=== PATIENT | male | born 1960 | race Caucasian/White ===

== ENCOUNTER 2019-06-27 10:33 | Emergency (ER) | payer SELFPAY ==
[2019-06-27] MEDS ORDERED: HYDROmorphone 0.5 MG/0.5 ML Syringe IVPUSH ONE (11:15)
[2019-06-27] MEDS ORDERED: HYDROmorphone 0.5 MG/0.5 ML Syringe ONE (11:16)
--- NOTE | 2019-06-27 11:52 | CR ---
Lumbar spine: AP and lateral views of the lumbar spine were obtained. Comparison: No previous study. Slight disc space narrowing is noted within the lower thoracic spine. Posterior disc space narrowing is noted at L4-L5. Other disc spaces are maintained. Scattered endplate osteophytes are seen. Pedicles are intact. Transverse and spinous processes are intact. Sacroiliac joints appear within normal limits. Impression: 1. Mild degenerative change as noted above. Diagnostic code #2 This report was dictated in [place] Standard Time
[2019-06-27] MEDS ORDERED: Orphenadrine 100 MG Tab.ER PO ONE (11:57)
--- NOTE | 2019-06-27 12:03 | EDM.PDOC ---
ED HPI GENERAL MEDICAL PROBLEM - General Chief Complaint: Back Pain or Injury Stated Complaint: FALL - 10 FT Time Seen by Provider: 06/27/19 11:08 Source of Information: Reports: Patient, RN Notes Reviewed History Limitations: Reports: No Limitations - History of Present Illness INITIAL COMMENTS - FREE TEXT/NARRATIVE: Patient is a 59-year-old male who presents to the ED for the evaluation of a fall. He notes that he was working on a ladder, taking a ceiling fixture down, when the ceiling fixture got away from him, and took him to the ground. He notes that he was about 5 feet up on the ladder, when he fell onto his butt and then onto his back. He states he did not hit his head or have any sort of loss of consciousness or blacking out. Patient is able to move lower extremities in all range of motion, however it is slow and painful to do so. He denies any numbness or tingling to the distal extremities. He does not have any pain into his neck, or into the back of his chest. The present in the room states that he is acting normal for himself, still has a slight sense of humor. When asked to point to what hurts, he points to the top of the right iliac crest, and into his back. He notes that he was able to get up after the accident, but he did need quite a bit help to get up into his work truck. He further denies any blurred vision or double vision, or any headaches. His normal care provider is Dr. Urban. He did not take any medications prior to coming to the ER. Lower Back Pain Score (Numeric/FACES): 8 - Related Data Allergies Allergy/AdvReac Type Severity Reaction Status Date / Time No Known Allergies Allergy Verified 06/27/19 11:19 Home Meds: Home Meds Acetaminophen/HYDROcodone [[place] 325-5 MG] 1 tab PO Q6H PRN #12 tablet 06/27/19 [Rx] Dapagliflozin Propanediol [Farxiga] 5 mg PO 06/27/19 [History] Orphenadrine [Norflex] 100 mg PO BID PRN #20 tab 06/27/19 [Rx] Semaglutide [Ozempic] 0.25 unit 06/27/19 [History] atorvaSTATin [Lipitor] 10 mg PO BEDTIME 06/27/19 [History] metFORMIN HCl [Metformin HCl] 500 mg PO 06/27/19 [History] Past Medical History Genitourinary History: Reports: Other (See Below) Other Genitourinary History: Kidney stones Psychiatric History: Reports: Depression Endocrine/Metabolic History: Reports: Diabetes, Type II - Past Surgical History HEENT Surgical History: Reports: Tonsillectomy Social & Family History - Tobacco Use Smoking Status *Q: Never Smoker - Caffeine Use Caffeine Use: Reports: Coffee - Recreational Drug Use Recreational Drug Use: No ED ROS GENERAL - Review of Systems Review Of Systems: See Below Constitutional: Denies: Fever, Chills Respiratory: Denies: Shortness of Breath, Cough Cardiovascular: Denies: Chest Pain GI/Abdominal: Denies: Abdominal Pain, Nausea, Vomiting Musculoskeletal: Reports: Back Pain (low back, R iliac crest), Muscle Stiffness (entire low back). Denies: Leg Pain Skin: Denies: Bruising Neurological: Reports: Gait Disturbance (slow, steady gait). Denies: Numbness, Tingling ED EXAM,LOWER BACK PAIN/INJURY - Physical Exam Exam: See Below Exam Limited By: No Limitations General Appearance: Alert, WD/WN, No Apparent Distress Eye Exam: Bilateral Eye: EOMI, Normal Inspection, PERRL Ears: Normal External Exam, Normal Canal, Hearing Grossly Normal, Normal TMs Nose: Normal Inspection, Normal Mucosa, No Blood Throat/Mouth: Normal Inspection, Normal Lips, Normal Teeth, Normal Gums, Normal Oropharynx, Normal Voice, No Airway Compromise Head: Atraumatic, Normocephalic Neck: Normal Inspection, Supple, Non-Tender, Full Range of Motion Respiratory/Chest: No Respiratory Distress, Lungs Clear, Normal Breath Sounds, No Accessory Muscle Use, Chest Non-Tender Cardiovascular: Normal Peripheral Pulses, Regular Rate, Rhythm, No Edema, No Murmur GI/Abdominal: Normal Bowel Sounds, Soft, Non-Tender, No Distention, No Mass Back Exam: Normal Inspection, Decreased Range of Motion (of entire back d/t pain ), Muscle Spasm ( R lumbar area exquisitely, but states he feels stiff all the way up his back). No: Paraspinal Tenderness, Vertebral Tenderness Extremities: Normal Inspection, Normal Capillary Refill, Limited Range of Motion (of lower extremities d/t pain) Neurological: Alert, Normal Mood/Affect, Normal Dorsiflexion, CN II-XII Intact ( grossly), Normal Plantar Flexion, Normal Reflexes, No Motor/Sensory Deficits, Oriented x 3, Straight Leg Raise (R) (slightly positive at top ROM). No: Straight Leg Raise (L), Saddle Anesthesia Psychiatric: Normal Affect, Normal Mood Skin Exam: Warm, Dry, Intact, Normal Color, No Rash Course - Vital Signs Last Recorded V/S: Last Vital Signs Temp 98.3 F 06/27/19 10:54 Pulse 80 06/27/19 11:12 Resp 18 06/27/19 11:12 BP 155/97 H 06/27/19 10:54 Pulse Ox 95 06/27/19 11:12 - Orders/Labs/Meds Orders: Active Orders 24 hr Category Date Time Status Orphenadrine [Norflex] Med 06/27/19 11:57 Once 100 mg PO ONETIME ONE Meds: Medications Discontinued Medications Generic Name Dose Route Start Last Admin Trade Name Wenceslao PRN Reason Stop Dose Admin Hydromorphone HCl 0.5 mg 06/27/19 11:15 06/27/19 11:19 Dilaudid IVPUSH 06/27/19 11:16 0.5 mg ONETIME ONE Administration Hydromorphone HCl Confirm 06/27/19 11:16 Dilaudid Administered 06/27/19 11:17 Dose 0.5 mg .ROUTE .STK-MED ONE - Re-Assessments/Exams Free Text/Narrative Re-Assessment/Exam: 06/27/19 12:03 Patient presents to the ED for the evaluation of a fall. Lumbar x-rays were taken at time of triage, and these do not demonstrate any sort of obvious acute fracture or bony abnormality. These were reviewed by myself and Dr. Flowers, official radiology read is pending. Patient was given 0.5 mg IM Dilaudid, he states this did provide pretty good pain relief. However he still feels quite tight and has pain with slight movement. I did also order 100 mg p.o. Norflex for further management. It appears that the patient does not have any sort of broken bones, but does have extensive soft tissue injury. Will likely send the patient home with general recommendations and a few pain pills, in case the Tylenol ibuprofen is not taking care of the pain completely. Departure - Departure Time of Disposition: 12:04 Disposition: Home, Self-Care 01 Condition: Fair Clinical Impression: Muscle spasm of back Fall Qualifiers: Encounter type: initial encounter Qualified Code(s): W19.XXXA - Unspecified fall, initial encounter Back pain Qualifiers: Back pain location: low back pain Chronicity: acute Back pain laterality: right Sciatica presence: without sciatica Qualified Code(s): M54.5 - Low back pain - Discharge Information *PRESCRIPTION DRUG MONITORING PROGRAM REVIEWED*: Yes *COPY OF PRESCRIPTION DRUG MONITORING REPORT IN PATIENT PATRICIA: No Instructions: Musculoskeletal Pain Referrals: PCP,None [Ordering Only Provider] - Additional Instructions: You have been evaluated in the ED for your fall and low back injury. Your x-ray demonstrated no obvious acute fracture or bony abnormality. Please use ice/heat as tolerated to the affected area. You may take Tylenol 500 mg or ibuprofen 600mg q6 hrs for pain relief. Please do so until you have a tolerable level of pain with activity. Do not exceed 4000mg Tylenol, Do not exceed 3200mg ibuprofen in a 24 hour time period. You were given a prescription for a strong pain medication, hydrocodone/ acetaminophen 5/325, please take 1 tab every 6 hours as needed for pain not relieved by Tylenol or ibuprofen alone. Please note this does contain Tylenol in it, so do not take more than 4000 mg in a 24-hour time span. These medications can be addictive, so please take as few as possible to achieve adequate pain control. These meds can also be quite constipating, recommend that you increase your oral fluid intake and take a stool softener like MiraLAX while taking these medications. You were also given a prescription for a muscle relaxer called Norflex, please take as directed for further muscle spasms. Recommend that you take it easy over the weekend, as you will likely be quite stiff and sore for the next few days. Recommend that you have an appointment with your primary care provider next week for reevaluation of your injuries and make sure things are getting better as expected. Please return to ED if your symptoms should change or worsen. Sepsis Event Note - Evaluation Sepsis Screening Result: No Definite Risk - Focused Exam Vital Signs: Vital Signs Temp Pulse Resp BP Pulse Ox 06/27/19 11:12 80 18 95 06/27/19 10:54 98.3 F 91 20 155/97 H 98 Date Exam was Performed: 06/27/19 Time Exam was Performed: 11:58 - My Orders Last 24 Hours: My Active Orders 06/27/19 11:57 Orphenadrine [Norflex] 100 mg PO ONETIME ONE - Assessment/Plan Last 24 Hours: My Active Orders 06/27/19 11:57 Orphenadrine [Norflex] 100 mg PO ONETIME ONE
== END 2019-06-27 12:53 | disposition home or self-care (01) ==
LOC: JD.ED 10:33
DX: M62.830 Muscle spasm of back (principal); M54.5 Low back pain; E11.9 Type 2 diabetes mellitus without complications; Z79.84 Long term (current) use of oral hypoglycemic drugs; Z79.899 Other long term (current) drug therapy; Z98.890 Other specified postprocedural states; W11.XXXA Fall on and from ladder, initial encounter
CPT/HCPCS: 72100; 82962; 96374; 99284; A9270; J1170; 99283

== ENCOUNTER 2021-08-10 07:31 | Day surgery (SDC) | payer OTHER ==
[~2021-08-10 07:31] MED LIST: Lactated Ringers 1,000 ML IV SCH; Lidocaine 1% 4 ML ONE; Lidocaine 1%/Sod Bicarbonate in NS 8.4% 1 ML Syringe IDERM PRN; Propofol 200 MG/20 ML SDV ONE; Sodium Chloride 0.9% 10 ML Syringe FLUSH PRN; Sodium Chloride 0.9% 10 ML Syringe FLUSH SCH; fentaNYL 100 MCG/2 ML SDV ONE
== END 2021-08-10 09:25 | disposition home or self-care (01) ==
LOC: JD.SDS 07:31
PROVIDERS: ATTEND Surgery
DX: K21.00 Gastro-esophageal reflux disease with esophagitis, without bleeding (principal); K22.89 Other specified disease of esophagus; K29.90 Gastroduodenitis, unspecified, without bleeding; E11.9 Type 2 diabetes mellitus without complications; E78.5 Hyperlipidemia, unspecified; Z98.890 Other specified postprocedural states; Z79.899 Other long term (current) drug therapy
CPT/HCPCS: 43239; J2704; J3010; J7120; 00731